=== PATIENT | female | born 1940 | race Caucasian/White ===

== ENCOUNTER 2019-05-26 10:51 | Observation (INO) | payer MEDICARE, BC ==
[2019-05-26 11:20] LABS: #Basophils 0.1 thou/uL (0.0-0.2); #Monocytes 0.4 thou/uL (0.11-0.59); #Neutrophils 5.1 thou/uL (1.40-6.50); %Eosinophils 0.7 % (0.0-10.0); %Lymphocytes 15.3 % (21.0-51.0); %Monocytes 5.9 % (0.0-10.0); %Neutrophils 77.1 % (42.0-75.0); Mean Corpuscular HGB CONC 32.3 g/dL (32.0-36.0); Mean Corpuscular Hemoglobin 28.1 pg (27.0-31.0); Mean Corpuscular Volume 86.9 fL (78.0-98.0); Mean Platelet Volume 8.8 fL (7.4-10.4); Platelet Count 172 thou/uL (130-400); RBC Distribution Width 14.4 % (11.5-14.5); Red Blood Cell (RBC) Count 4.98 mill/uL (4.20-5.40); White Blood Cell (WBC) Count 6.6 thou/uL (4.8-10.8)
--- NOTE | 2019-05-26 11:30 | RAD ---
EXAM: Single view of the chest HISTORY: Syncope COMPARISON: None FINDINGS: Single view of the chest shows a normal sized cardiomediastinal silhouette. There is no maddy dence of consolidation, mass, or pleural effusion. The bones are unremarkable. IMPRESSION: No evidence of acute cardiopulmonary disease
[2019-05-26 11:40] LABS: ALT (SGPT) 10 U/L (8-55); AST (SGOT) 17 U/L (5-34); Albumin 4.5 g/dL (3.4-4.8); Alkaline Phosphatase 65 U/L (40-150); Anion Gap 15 mmol/L (10-20); BUN (Urea Nitrogen) 16 mg/dL (9.8-20.1); Bilirubin, Total 1.5 mg/dL (0.2-1.2); CK (CPK) 145 U/L (29-168); Calc. Creatinine Clearance 0 mL/min (70-130); Calcium 9.7 mg/dL (7.8-10.44); Carbon Dioxide 26 mmol/L (23-31); Chloride 105 mmol/L (98-107); Estimated GFR-MDRD 68; Globulin 2.9 g/dL (2.4-3.5); Glucose 89 mg/dL (83-110); Potassium 3.9 mmol/L (3.5-5.1); Protein, Total 7.4 g/dL (6.0-8.3); Sodium 142 mmol/L (136-145)
[2019-05-26] MEDS ORDERED: Ondansetron PF 4 MG/2 ML Vial IVP PRN (13:48)
[2019-05-26] MEDS ORDERED: Acetaminophen 325 MG TAB PO PRN (13:48)
[2019-05-26] MEDS ORDERED: Ondansetron ODT 4 MG TAB SL PRN (13:48)
[2019-05-26 14:07] VITALS: BMI 29.6
[2019-05-26 15:23] LABS: Troponin I Less than 0.010 ng/mL (< 0.028)
--- NOTE | 2019-05-26 15:51 | HP ---
CHIEF COMPLAINT: Syncope. HISTORY OF PRESENT ILLNESS: This patient is a 78-year-old female, who is highly functional, still lives alone and takes care of some small children in the mornings. The patient states that yesterday was her usual day she got up, but at one point she felt a little lightheaded after lunch. She sat down for a few minutes and this went away. Then she got up and walked to her sink and the next thing she knew she was getting up off the floor. She had a syncopal episode, but is not sure how long she was out, but believes it was extremely brief. She was not even entirely sure that she had passed out. She denied any lightheadedness prior to passing out. She had no chest pains or shortness of breath. No palpitations. She noted some swelling in her right foot and ankle. She put some ice on it and basically went to bed. Today when she awakened, she took the ice off and there was some "bubbling up" of the foot area. Therefore, she called her son and ultimately went to an urgent care center. She had some x-rays that showed some fractures apparently in the metatarsals and then she was referred to the [facility] Emergency Room. There, the patient's EKG was concerning for the possibility of Wellens waves. There the patient also reportedly had another episode of lightheadedness and her heart rate noted to change from 50 to 100 during that time and then drop back down to 60 and her symptoms resolved. The patient reports that she has been occasionally having some very brief episodes of feeling lightheaded. She says her lisinopril was added 6 months ago approximately. She is not sure if that is when the dizzy spell started or not. REVIEW OF SYSTEMS: All systems reviewed, all pertinent positives and negatives noted in the HPI. PAST MEDICAL HISTORY: Hypertension, hyperlipidemia. PAST SURGICAL HISTORY: Hysterectomy. FAMILY HISTORY: Mother had hypertension, at 91. Father had sudden at 81. SOCIAL HISTORY: No tobacco. No drugs. Occasional wine. She is a . She lives alone. She is DNAR and her son would be her surrogate decision maker should that become necessary. ALLERGIES: NONE. HOME MEDICATIONS: 1. CoQ10 of 100 mg at bedtime. 2. Ezetimibe/simvastatin 10/20 one p.o. at bedtime. 3. Turmeric 500 mg q.a.m. 4. Triple magnesium complex 400 mg q.a.m. 5. Lisinopril 10 mg q.p.m. 6. Aspirin 81 mg q.a.m. PHYSICAL EXAMINATION: VITAL SIGNS: Temperature is 97.6, pulse 66, respirations 16, O2 saturation 98% on room air. BP supine 178/70, sitting 174/77, standing 144/78. GENERAL APPEARANCE: Age-appropriate female, in no distress. She is awake, alert, oriented, pleasant, and cooperative. HEART: Regular rate and rhythm without murmurs. LUNGS: Clear bilaterally. No wheezes or rales. ABDOMEN: Soft, nontender, and nondistended. Positive bowel sounds. No masses. No organomegaly. EXTREMITIES: No cyanosis, clubbing, or edema. She does have a walking boot on the right foot with some ecchymoses noted over the dorsal lateral foot. NEUROLOGICAL: The patient is fully awake and alert. She is moving all extremities spontaneously. Cranial nerves are intact. She is cognitively normal. PSYCH: Normal affect and behavior. LABORATORY DATA: White count 6.6, hemoglobin 14.0, platelets 172. Sodium 142, potassium 3.9, chloride 105, CO2 of 26, BUN 16, creatinine 0.82, glucose 89, AST is 17, ALT is 10, alkaline phosphatase 65. Troponin less than 0.01. BNP is 67.1. DIAGNOSTIC DATA: Chest x-ray shows no acute cardiopulmonary processes. EKG shows sinus bradycardia, 58 beats per minute with some LVH and report abnormality. Subtle changes in V8 through V6 and they were initially concerning for Wellens waves were reviewed with Cardiology and it is believed these are likely not true livestock sales representative of Wellens waves. IMPRESSION AND PLAN: 1. Syncopal episode of unclear etiology. It sounds like she passed out soon after getting up and walking briefly, concerning for orthostatic hypotension. The patient does have some orthostasis here, although her blood pressure remains relatively high, even though it drops about 30 points from sitting to standing. We will gently hydrate, get echocardiogram, carotid doppler, CT head, TSH. Recheck her labs in the morning. I am going to keep her on telemetry. Of note, the patient did have an episode of lightheadedness in the emergency department. Apparently, she had a bit of tachycardia associated with that, so I want to observe her on the monitor overnight. If everything looks good, try to increase her activity tomorrow and ensure that it stays normal. 2. Hypertension. We will continue with her usual lisinopril. 3. Hyperlipidemia. We will give the Zetia, simvastatin combination. 4. Right foot fracture. The patient's walking boot can likely follow up on that as an outpatient if needed. Job ID: [id number]
--- NOTE | 2019-05-26 16:52 | CT ---
CT HEAD WITHOUT CONTRAST: 05/26/19 COMPARISON: None. HISTORY: Fall, trauma, pain. TECHNIQUE: Axial CT imaging obtained at 5 mm intervals from vertex through skull base without contrast. FINDINGS: Imaged paranasal sinuses and mastoid air cells are well aerated. No displaced calvarial fracture is n oted. There is a focal area of scalp swelling seen posteriorly on the right near the vertex. There is cerebral volume loss noted anteriorly. There is no intracranial hemorrhage, midline shift or mass effect. IMPRESSION: Focal area of posterior right sided scalp swelling near the vertex. No associated fracture or intracr anial hemorrhage. POS: H
[2019-05-26] MEDS: Sodium Chloride 0.9% 1,000 ML IV SCH (17:13)
--- NOTE | 2019-05-26 18:04 | ULT ---
BILATERAL CAROTID DUPLEX ULTRASOUND: 05/26/19 HISTORY: Syncope. Real time color Doppler evaluation of the right and left carotid systems was performed. There is some mild intimal thickening bilaterally. On the right side, peak systolic velocities of the common carotid were 82 cm/s. Internal carotid velo [place] 74 cm/s. External carotid velocities 56 cm/s. On the left side, peak systolic velocities of the common carotid were 90 cm/s. Internal carotid veloc ities 66 cm/s. External carotid velocities 43 cm/s. Vertebral flow is antegrade bilaterally. IMPRESSION: No evidence of hemodynamically significant stenosis of either internal carotid artery by NASCET crite nehemias. POS: REBEL
[2019-05-26] MEDS ORDERED: Simvastatin 20 MG TAB PO SCH (21:00)
[2019-05-26] MEDS ORDERED: Lisinopril 10 MG TAB PO SCH (21:00)
[2019-05-26 21:04] LABS: Troponin I Less than 0.010 ng/mL (< 0.028)
[2019-05-27] MEDS: Sodium Chloride 0.9% 1,000 ML IV SCH (05:50)
[2019-05-27 06:15] LABS: Band 3 % (5-11); Eosinophils 3 % (0-10); Hemoglobin 12.2 g/dL (12.0-16.0); Lymphocytes 19 % (21-51); MDiff Complete? YES; Mean Corpuscular HGB CONC 31.9 g/dL (32.0-36.0); Mean Corpuscular Hemoglobin 28.2 pg (27.0-31.0); Mean Corpuscular Volume 88.4 fL (78.0-98.0); Mean Platelet Volume 7.6 fL (7.4-10.4); Monocytes 6 % (0-10); Neutrophil 69 % (42-75); Platelet Count 140 thou/uL (130-400); Platelet Morphology Comment Appears Adequate; RBC Distribution Width 13.6 % (11.5-14.5); Red Blood Cell (RBC) Count 4.32 mill/uL (4.20-5.40); White Blood Cell (WBC) Count 4.4 thou/uL (4.8-10.8)
[2019-05-27 06:19] LABS: ALT (SGPT) 7 U/L (8-55); AST (SGOT) 13 U/L (5-34); Albumin 3.7 g/dL (3.4-4.8); Alkaline Phosphatase 57 U/L (40-150); Anion Gap 10 mmol/L (10-20); BUN (Urea Nitrogen) 10 mg/dL (9.8-20.1); Bilirubin, Total 1.5 mg/dL (0.2-1.2); Calc. Creatinine Clearance 76 mL/min (70-130); Calcium 8.8 mg/dL (7.8-10.44); Carbon Dioxide 27 mmol/L (23-31); Chloride 107 mmol/L (98-107); Estimated GFR-MDRD 79; Globulin 2.3 g/dL (2.4-3.5); Glucose 86 mg/dL (83-110); Potassium 3.7 mmol/L (3.5-5.1); Sodium 140 mmol/L (136-145)
[2019-05-27] MEDS ORDERED: Aspirin 81 mg Enteric Coated Tablet PO SCH (09:00)
[2019-05-27] MEDS ORDERED: Ezetimibe 10 MG TAB PO SCH (09:00)
[2019-05-27 11:56] VITALS: TEMP 99.3
[2019-05-27 11:58] VITALS: BP 130/82
[2019-05-27] MEDS ORDERED: Budesonide 0.5 MG/2 ML NEB ONE (13:45)
[2019-05-27] MEDS ORDERED: Prevnar 13-Val Conj/PF 0.5 ML SYRINGE IM ONE (14:15)
--- NOTE | 2019-05-27 16:17 | DIS ---
DATE OF ADMISSION: 05/26/2019 DATE OF DISCHARGE: 05/27/2019 DISCHARGE DIAGNOSES: 1. Syncope. 2. Fracture involving 2nd, 3rd, and 4th metatarsals. 3. Orthostatic hypotension. 4. Hypertension. 5. History of hyperlipidemia. HISTORY OF PRESENT ILLNESS: This patient is a 78-year-old female, who presented via the emergency department. The patient reports that she felt a bit lightheaded, sat down in a chair, felt better, got up, took a few steps to her sink, and then found herself on the floor. She had injured her foot, but was not concerned about the syncopal episode. She put ice on her foot and went to bed. The following day, her foot looked worse, so she notified her family, who took her to an urgent care center, where she had x-rays indicating there was a fracture of the foot. She was put in a walking boot and referred to the emergency department at the [facility]. There, the patient had evaluation, which included essentially normal CBC and normal chemistries with the exception of a bilirubin of 1.5. She had an EKG , which was potentially concerning for Wellens waves, and the patient was therefore admitted into observation at [place]. On arrival, the patient reported she felt completely fine and had not been terribly concerned about the episode. She did have orthostatic vital signs obtained on her arrival to the floor and her systolic dropped from 170s to 140s going from sitting to standing. The patient received some IV fluids. She was continued on telemetry monitoring. She had serial troponins , which remained negative. Repeat labs remained negative with the exception of the bilirubin staying at 1.5. TSH was normal. BNP was 67.3. Echocardiogram was normal with an ejection fraction of 60% to 65%. Carotid Doppler study was negative. CT of the brain showed a small area of right scalp swelling, but no intracranial abnormalities. The patient's repeat orthostatic vital signs were normal. She continued to feel well and was deemed stable for discharge. PHYSICAL EXAMINATION: VITAL SIGNS: At the time of discharge, temperature was 99.3, pulse 94, respirations 18, O2 saturation 95% on room air, blood pressure was 130/82. GENERAL: She was awake, alert, oriented, pleasant, cooperative. HEART: Regular rate and rhythm without murmurs. LUNGS: Clear bilaterally. ABDOMEN: Soft, nontender, and nondistended. EXTREMITIES: No cyanosis, clubbing, or edema. There was a walking boot on the right foot. There are some ecchymoses over the dorsal lateral portion of the right foot as well. DISPOSITION: The patient is discharged to home. The patient's son arrived. I went back and had a conversation with her and the son again. 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 However, we talked at great length about the need to continue to hydrate well, to avoid caffeinated beverages and discussed the workup and the findings. Recommended to follow up with Dr. Yao. She may need some referral to Orthopedics regarding the right foot fractures, and the only other workup at this point that might be considered would be ongoing telemetry monitoring. She will have otherwise a normal activity level. Her diet is regular. DISCHARGE MEDICATIONS: Will be to continue her usual home medications including 1. Aspirin. 2. Simvastatin. 3. Lisinopril. 4. Magnesium. 5. CoQ10. 6. Turmeric. FOLLOWUP: She should follow up with Dr. Yao next available appointment. She can return to the hospital should she have any problems prior to that time. On arrival, the patient's EKG was reviewed with Dr. Sal, who did not believe her EKG had Wellens waves present. I happened to see Dr. Yao and was able to personally review the patient's record, her workup, and her findings as, well as the plan of care with which he is in agreement. Job ID: [id number] [id number]
== END 2019-05-27 14:40 | disposition home or self-care (01) ==
LOC: SCSER 10:51 → 2NO 13:44 → INTOOBSV 13:44
PROVIDERS: ADMIT Internal Medicine; ATTEND Internal Medicine
DX: I95.1 Orthostatic hypotension (principal); S92.321A Displaced fracture of second metatarsal bone, right foot, initial encounter for closed fracture; S92.331A Displaced fracture of third metatarsal bone, right foot, initial encounter for closed fracture; S92.341A Displaced fracture of fourth metatarsal bone, right foot, initial encounter for closed fracture; I10 Essential (primary) hypertension; E78.5 Hyperlipidemia, unspecified; R00.1 Bradycardia, unspecified; Z66 Do not resuscitate; Z79.82 Long term (current) use of aspirin; Z79.899 Other long term (current) drug therapy; X58.XXXA Exposure to other specified factors, initial encounter
CPT/HCPCS: 70450; 71045; 80053 ×2; 82550; 83880; 84443; 84484 ×2; 85007; 85025; 85027; 90670; 93005; 93306; 93880; 96360; 96361; 99285; G0009; G0378 ×2; 36415; 90471; J7626

== ENCOUNTER 2022-05-04 14:36 | Outpatient (CLI) | payer MEDICARE, BC | END 2022-05-04 14:37 | disposition home or self-care (01) | LOC: EEG 14:36 | PROVIDERS: ATTEND Psychiatry & Neurology Neurology | DX: R25.9 Unspecified abnormal involuntary movements (principal) | CPT/HCPCS: 95816; 95957 ==